=== PATIENT | male | born 1980 | race Caucasian/White ===

== ENCOUNTER 2016-05-28 11:00 | Outpatient (RCR) | payer OTHER | END 2016-05-29 | disposition home or self-care (01) | LOC: M OUTALCOH 11:00 | PROVIDERS: ATTEND Psychiatry & Neurology Psychiatry | DX: F10.20 Alcohol dependence, uncomplicated (principal); F17.200 Nicotine dependence, unspecified, uncomplicated ==

== ENCOUNTER 2016-06-25 11:00 | Outpatient (RCR) | payer OTHER | END 2016-06-26 | LOC: M OUTALCOH 11:00 | PROVIDERS: ATTEND Psychiatry & Neurology Psychiatry | DX: F10.20 Alcohol dependence, uncomplicated (principal); F17.200 Nicotine dependence, unspecified, uncomplicated ==

== ENCOUNTER 2016-07-23 11:20 | Outpatient (RCR) | payer OTHER | END 2016-07-27 | LOC: M OUTALCOH 11:20 | PROVIDERS: ATTEND Psychiatry & Neurology Psychiatry | DX: F10.20 Alcohol dependence, uncomplicated (principal); F17.200 Nicotine dependence, unspecified, uncomplicated ==

== ENCOUNTER 2016-08-13 10:16 | Outpatient (RCR) | payer OTHER | END 2016-08-26 | LOC: M OUTALCOH 10:16 | PROVIDERS: ATTEND Psychiatry & Neurology Psychiatry | DX: F10.20 Alcohol dependence, uncomplicated (principal); F17.210 Nicotine dependence, cigarettes, uncomplicated ==